=== PATIENT | female | born 1965 | race Caucasian/White ===

== ENCOUNTER 2017-12-01 15:20 | Emergency (ER) | payer BC ==
[~2017-12-01] VITALS: Ht 7.6 cm; Wt 131.8 kg
[~2017-12-01 15:20] MED LIST: ABILIFY5 MG; ADDERALL XR30 MG PO; ADVIL200 MG; ATARAX 10MG10 MG/TAB; B COMPLEX1 TA2; CLONAZEPAM PO; DEPAKOTE500 MG PO; DITROPAN 5MG TAB5 MG PO; ELITE MAGNESIUM1 TAB; FLEXERIL10 MG PO; FLEXERIL5 MG PO; GABAPENTIN600 MG PO; PRILOTC PO; TOPAMAX 25MG25 M1; ULTRAM 50MG TAB50 MG PO; VERELAN180 MG; VESICARE10 MG PO; VICODIN 5/5001 UDTAB PO; VICOPROFEN 7.51 TAB PO; VITAMIN D 1001000 IU; ZANTAC 150150 MG PO
[2017-12-01 15:24] VITALS: TEMP 97
[2017-12-01 16:07] LABS: BASO % 0.6 % (0.0-2.0); EOS # 0.1 (0.0-0.7); HEMATOCRIT 38.5 % (37.0-47.0); HEMOGLOBIN 12.9 g/dl (12.5-16.0); LYMPH # 1.5 (1.2-3.4); LYMPH % 30.1 % (20.0-51.0); MEAN CELL VOLUME 87 fl (80.0-100.0); MEAN CORPUSCULAR HEMOGLOBIN 29 pg (27.0-31.0); MEAN CORPUSCULAR HGB CONC 34 g/dl (33.0-37.0); MEAN PLATELET VOLUME 10.1 fl (7.4-10.4); MONO # 0.4 (0.1-0.6); MONO % 7.1 % (1.7-9.3); PLATELET COUNT 248 K/mm3 (130-400); RED BLOOD COUNT 4.42 M/mm3 (4.10-5.30); REDCELL DISTRIBUTION WIDTH-CV 12.8 % (11.5-14.5)
[2017-12-01 16:15] LABS: PROTHROMBIN TIME 11.2 SECONDS (9.7-12.8)
[2017-12-01 16:21] LABS: ALANINE AMINOTRANSFERASE 37 U/L (9-52); ALBUMIN 4.2 gm/dL (3.5-5.0); ALKALINE PHOSPHATASE 105 U/L (50-136); ANION GAP 10 mmol/L (7-16); AST,SGOT 22 U/L (15-37); BILIRUBIN,TOTAL 0.4 mg/dL (0.0-1.0); BLOOD UREA NITROGEN 14 mg/dL (7-17); CALCIUM 8.9 mg/dL (8.4-10.2); CARBON DIOXIDE 25 mmol/L (22-30); CHLORIDE 105 mmol/L (98-107); CREATININE, serum 0.77 mg/dL (0.52-1.25); GLUCOSE 96 mg/dL (74-106); POTASSIUM 3.4 mmol/L (3.4-5.0); SODIUM 140 mmol/L (137-145); TOTAL PROTEIN 7.6 gm/dL (6.4-8.2)
[2017-12-01 16:22] LABS: C-REACTIVE PROTEIN < 0.5 mg/dL (0.0-0.9)
[2017-12-01 16:30] LABS: TROPONIN-I < 0.012 ng/mL (0.000-0.034)
[2017-12-01 19:08] VITALS: BP 120/74; PULSE 50
== END 2017-12-01 19:29 | disposition home or self-care (01) ==
LOC: COL.ER 15:20
PROVIDERS: Emergency Medicine
DX: R07.89 Other chest pain (principal); K21.9 Gastro-esophageal reflux disease without esophagitis; E66.01 Morbid (severe) obesity due to excess calories; Z90.710 Acquired absence of both cervix and uterus; Z98.890 Other specified postprocedural states; Z82.49 Family history of ischemic heart disease and other diseases of the circulatory system
CPT/HCPCS: J2405